=== PATIENT | female | born 1990 | race American Indian/Alaskan Native ===

== ENCOUNTER 2020-12-28 06:04 | Day surgery (SDC) | payer MEDICAID, OTHER ==
[2020-12-21 11:26] LABS: Hematocrit 40.7 % (30.3-42.9); Hemoglobin 13.5 gm/dl (10.1-14.3); Mean Corpuscular HGB Conc 33 % (30-34); Mean Corpuscular Volume 85 fl (79-97); Platelet Count 336 K/mm3 (140-440); Red Cell Distribution Width 14.2 % (13.2-15.2)
[2020-12-21 11:33] LABS: Blood Urea Nitrogen 9 mg/dL (7-17); Calcium 9.2 mg/dL (8.4-10.2); Hemolysis Index 3
[2020-12-21 11:41] LABS: BUN/Creatinine Ratio 13
[~2020-12-28 06:04] MED LIST: ACETAMINOPHEN 500 MG TAB PO SCH; CELECOXIB 200 MG CAP PO NR; GABAPENTIN 300 MG CAP PO NR; LACTATED RINGERS 1,000 ML IV SCH; MIDAZOLAM 2 MG/2 ML INJ IV NR; SCOPOLAMINE TRANSDERMAL PATCH 72 HR TD NR
[2020-12-28] MEDS ORDERED: BACTERIOSTATIC SODIUM CHLORIDE 0.9% 30 ML VIAL INFILTRATI ONE (06:51)
[2020-12-28] MEDS ORDERED: LIDOCAINE (1%) 10 MG/1 ML VIAL 20 ML MDV ONE ×2 (07:12→07:39)
[2020-12-28] MEDS ORDERED: BUPIVACAINE/PF (0.5%) 5 MG/1 ML 30 ML VIAL INFILTRATI ONE ×3 (07:13→09:43)
--- NOTE | 2020-12-28 07:21 | Anesthesia Consultation ---
Anesthesia Consult and Med Hx Date of service: 12/28/20 - Airway Anesthetic Teeth Evaluation: Good ROM Head & Neck: Adequate Mental/Hyoid Distance: Adequate Mallampati Class: Class II Intubation Access Assessment: Probably Good - Pre-Operative Health Status ASA Pre-Surgery Classification: ASA1 Proposed Anesthetic Plan: General - Pulmonary Hx Smoking: No Hx Respiratory Symptoms: No Hx Sleep Apnea: No (ANGELA PRE SCREEN LOW RISK) - Cardiovascular System Hx Hypertension: No (w/ only) - Central Nervous System CVA: No - Endocrine Hx Renal Disease: No Hx Liver Disease: No Hx Insulin Dependent Diabetes: No Hx Non-Insulin Dependent Diabetes: No Hx Thyroid Disease: No - Other Systems Hx Obesity: Yes (BMI 34) - Additional Comments Anesthesia Medical History Comments: No hx anesthetic complications.
--- NOTE | 2020-12-28 07:21 | Anesthesia Day of Surgery ---
Anesthesia Day of Surgery - Day of Surgery Patient Examined: Yes Patient H&P Reviewed: Yes Patient is NPO: Yes
[2020-12-28] MEDS ORDERED: LIDOCAINE MPF (2%) 20 MG/1 ML VIAL 5 ML ONE (07:27)
[2020-12-28] MEDS ORDERED: propofoL 200 MG/20 ML VIAL IV ONE (07:28)
[2020-12-28] MEDS ORDERED: fentaNYL 100 MCG/2 ML INJ ONE (07:28)
[2020-12-28] MEDS ORDERED: ONDANSETRON 4 MG/2 ML INJ IV PRN (07:30)
[2020-12-28] MEDS ORDERED: HYDROmorphone 1 MG/1 ML INJ IV PRN (07:30)
[2020-12-28] MEDS ORDERED: oxyCODONE /ACETAMINOPHEN 5-325MG TAB PO PRN (07:30)
[2020-12-28] MEDS ORDERED: dexAMETHasone 20 MG/5 ML VIAL ONE (07:32)
[2020-12-28] MEDS ORDERED: ROCURONIUM 50 MG/5 ML INJ IV ONE (07:32)
[2020-12-28] MEDS ORDERED: ceFAZolin/STERILE WATER 2 GM/20 ML SYRINGE IV NR (08:00)
[2020-12-28] MEDS ORDERED: KETAMINE/STERILE WATER 50 MG/ML SYRINGE ONE (08:29)
[2020-12-28] MEDS ORDERED: PHENYLEPHRINE/NS 1,000 MCG/10 ML SYRINGE (OR USE) IV ONE (08:40)
[2020-12-28] MEDS ORDERED: ONDANSETRON 4 MG/2 ML INJ ONE (08:53)
[2020-12-28] MEDS ORDERED: KETOROLAC 30 MG/1 ML INJ ONE (08:53)
[2020-12-28] MEDS ORDERED: LACTATED RINGERS 1,000 ML ONE (08:55)
[2020-12-28] MEDS ORDERED: LIDOCAINE (1%) 10 MG/1 ML VIAL 20 ML MDV INFILTRATI ONE (09:44)
[2020-12-28] MEDS ORDERED: GLYCOPYRROLATE 0.4 MG/2 ML INJ ONE (10:19)
[2020-12-28] MEDS ORDERED: NEOSTIGMINE 10MG/10 ML INJ MDV ONE (10:19)
--- NOTE | 2020-12-28 10:27 | Short Stay Summary ---
Short Stay Documentation Date of service: 12/28/20 - History Principal diagnosis: ventral hernia H&P: obtained from office - Allergies and Medications Current Medications: Allergies No Known Allergies Allergy (Verified 09/29/19 11:41) Home Medications Medication Instructions Recorded Confirmed Last Taken Type No Known Home Medications [No 12/16/20 12/16/20 Unknown History Reported Home Medications] Active Medications Acetaminophen (Acetaminophen 500 Mg Tab) 1,000 mg PO PREOP YASMANY Stop: 12/28/20 20:00 Last Admin: 12/28/20 07:15 Dose: 1,000 mg Documented by: Cefazolin Sodium (Cefazolin/Sterile Water 2 Gm/20 Ml Syringe) 2 gm IV PREOP NR Stop: 12/28/20 20:00 Celecoxib (Celecoxib 200 Mg Cap) 200 mg PO PREOP NR Stop: 12/28/20 20:00 Last Admin: 12/28/20 07:15 Dose: 200 mg Documented by: Gabapentin (Gabapentin 300 Mg Cap) 300 mg PO PREOP NR Stop: 12/28/20 20:00 Last Admin: 12/28/20 07:15 Dose: 300 mg Documented by: Hydromorphone HCl (Hydromorphone 1 Mg/1 Ml Inj) 0.5 mg IV Q10MIN PRN PRN Reason: Pain , Severe (7-10) Stop: 12/28/20 23:00 Lactated Ringer's (Lactated Ringers) 1,000 mls @ 100 mls/hr IV DIRECT YASMANY Stop: 12/28/20 23:59 Last Admin: 12/28/20 07:20 Dose: 100 mls/hr Documented by: Midazolam HCl (Midazolam 2 Mg/2 Ml Inj) 2 mg IV PREOP NR Stop: 12/28/20 20:00 Last Admin: 12/28/20 07:25 Dose: 2 mg Documented by: Ondansetron HCl (Ondansetron 4 Mg/2 Ml Inj) 4 mg IV ONCE PRN PRN Reason: Nausea And Vomiting Oxycodone/Acetaminophen (Oxycodone /Acetaminophen 5-325mg Tab) 1 tab PO ONCE PRN PRN Reason: Pain, Moderate (4-6) Stop: 12/28/20 16:00 Scopolamine (Scopolamine Transdermal Patch 72 Hr) 1 each TD PREOP NR Stop: 12/28/20 23:00 Last Admin: 12/28/20 07:14 Dose: 1 each Documented by: - Brief post op/procedure progress note Date of procedure: 12/28/20 Pre-op diagnosis: ventral hernia Post-op diagnosis: other (ventral hernia with incarcerated preperitoneal fat) Procedure: robotic assisted ventral hernia repair with mesh Anesthesia: GETA, local Findings: Two ventral hernia defects superior to umbilicus, total hernia measuring approximately 2.5 x 1.8cm, containing moderate amount of incarcerated preperitoneal fat. Repaired with 11cm round bard flat mesh placed in preperitoneal space Surgeon: MARYANNE SOLIS Tie Loader: SONIA DAVID Estimated blood loss: minimal Pathology: none Condition: stable - Hospital course Hospital course: Pt observed in PACU and discharged to home in stable condition when criteria met - Disposition Condition at discharge: Good Disposition: 01 HOME / SELF CARE / HOMELESS Short Stay Discharge Plan Activity: other (no heavy lifting) Diet: regular Wound: open to air, per your surgeon's advice Additional Instructions: see printed discharge instructions Follow up with: PRIMARY CARE, [Primary Care Provider] - 7 Days MARYANNE SOLIS DO [Staff Physician] - 14 Days Prescriptions: Gabapentin 300 mg PO BID 3 Days #6 capsule Ibuprofen [Motrin 800 MG tab] 800 mg PO Q8HR PRN #30 tablet PRN Reason: Pain, Moderate (4-6) oxyCODONE /ACETAMINOPHEN [Percocet 5/325] 1 tab PO Q6HR PRN #20 tablet PRN Reason: Pain , Severe (7-10)
--- NOTE | 2020-12-28 12:46 | Post Anesthesia Evaluation ---
- Post Anesthesia Evaluation Patient Participated: Yes Airway Patent: Yes Stable Respiratory Function: Yes Nausea/Vomiting: No Temp > 96.8F: Yes Pain Manageable: Yes Adequeate Hydration: Yes Anesthesia Complications: No
[2020-12-28 16:05] VITALS: BP 117/65
--- NOTE | 2021-01-03 08:27 | Operative Report ---
Operative Report Operative Report: Date of procedure: 12/28/20 10:22 Pre-op diagnosis: ventral hernia Post-op diagnosis: other (ventral hernia with incarcerated preperitoneal fat) Procedure: robotic assisted ventral hernia repair with mesh Anesthesia: JUAN JOSE local Findings: Two ventral hernia defects superior to umbilicus, total hernia measuring approximately 2.5 x 1.8cm, containing moderate amount of incarcerated preperitoneal fat. Repaired with 11cm round bard flat mesh placed in preperitoneal space Surgeon: MARYANNE SOLIS Sander Setter: SONIA DAVID Estimated blood loss: minimal Pathology: none Condition: stable Hospital course: Pt observed in PACU and discharged to home in stable condition when criteria met HPI and indication: 30-year-old female who presents to surgery clinic for evaluation of a bulge above the umbilicus. This bulge has been present for some time and soft but not reducible on exam. An additional soft tissue prominence was palpable to the right of the supraumbilcal ventral hernia. It was recommended that the hernia be repaired. All risk, benefits, alternatives surgery discussed with patient questions answered. It was recommended that the hernia be repaired robotically. Alternatives such as open versus laparoscopic repair were also discussed. The patient was in agreement and consent obtained. Procedure in detail: The patient was identified in the preoperative area and taken back to the operating room and placed on the operating room table in supine position. After anesthesia was induced, both arms were tucked with all bony prominences padded appropriately. The abdomen was then prepped and draped in usual sterile fashion and a timeout was performed. Local anesthetic was infilitrated into the skin at the intended incision sites. A raven incision was made in the left upper quadrant at Ly's point through which a Veress needle was inserted. The Veress needle position was confirmed using the saline drop test and the abdomen insufflated to 15 mmHg without incident. A 5 mm incision was made in the right upper quadrant through which a 5 mm Optiview trocar was placed under direct visualization. The abdomen was inspected and there was no underlying injury to any of the abdominal structures. The Veress needle was identified and removed. A 12 mm balloon trocar was placed in the right lateral abdomen and an 8 mm robotic trocar in the right lower quadrant under direct visu alization. The 5 mm right upper quadrant trocar was replaced with an 8 mm robotic trocar under direct visualization. The patient was tilted to the left and the robot docked. A fenestrated bipolar was placed in arm #2 and a monopolar scissor in arm #1. The surgeon was then transferred to the console. The supraumbilical ventral hernia was identified. I first started by creating a preperitoneal flap to the right of the hernia defect. The peritoneum was scored to the right of the hernia defect using a monopolar scissor and a preperitoneal plane developed in an avascular plane. Using a combination of blunt dissection and cautery the plane superior to and inferior to the hernia was developed. There was moderate amount of preperitoneal fat incarcerated in the hernia which was carefully dissected and reduced along with the hernia sac. I continued the dissection and another small fascial defect was encountered and hernia sac reduced. The dissection was continued laterally to create a large enough pocket for mesh placement. Once the dissection was complete the pocket was checked for hemostasis. The hernia defect was measured at 2.5cm x 1.8cm. It was decided to fix the hernia with a 11 cm Bard flat mesh. The mesh was cut to size and along with suture material placed into the abdomen by the assisted living assistant surgeon. The pressure in the abdomen was decreased to 8 mmHg. First the hernia defects were closed using a 0 VLoc running stitch. The mesh was then placed in the preperitoneal space and centered. The mesh was sutured into place in all 4 quadrants using interrupted 2-0 Vicryl stitches. The mesh laid flat in the preperitoneal space with adequate overlap of the hernia. The peritoneum was approximated using 3 0 VLoc running stitch. The entirety of the mesh was covered by peritoneum. The robot was then undocked and the surgeon scrubbed back in. The remainder of the case was performed laparoscopically. All sharp and suture material was removed under direct visualization. The 12 mm port was removed and the fascia closed with an interrupted 0-vicryl stitch using the Lan Trevizo device. The right lower quadrant port fascia was also closed with an interrupted 0 Vicryl stitch using the Aln Trevizo device. The right upper quadrant port was removed and the abdomen desufflated. The skin incisions were closed with 4-0 Monocryl subcuticular stitches and skin glue. Once the glue was dry a 4 x 4 gauze was balled up and placed at the umbilicus and secured with a Tegaderm. At the end of the case, all sponge, instrument, sharp counts were correct 2. An abdominal binder was applied to the patient. The patient was awoken from anesthesia, extubated and taken to PACU in stable condition.
== END 2020-12-28 14:00 | disposition home or self-care (01) ==
LOC: OR 06:04
PROVIDERS: ATTEND Surgery
DX: K43.6 Other and unspecified ventral hernia with obstruction, without gangrene (principal); E66.9 Obesity, unspecified; Z87.891 Personal history of nicotine dependence; Z79.899 Other long term (current) drug therapy; Z98.890 Other specified postprocedural states; Z20.822 Contact with and (suspected) exposure to COVID-19; Z68.34 Body mass index [BMI] 34.0-34.9, adult
CPT/HCPCS: 36415; 49653; 80048; 81025; 84703; 85027; C1781; J0690; J1100; J1170; J1885; J2250; J2370; J2405; J2704; J2710; J3010; J3490; J7120; S2900; U0003